=== PATIENT | female | born 1970 | race Caucasian/White ===

== ENCOUNTER 2020-12-04 17:41 | Emergency (ER) | payer BC ==
[~2020-12-04] VITALS: Ht 165.1 cm; Wt 108.9 kg
[~2020-12-04 17:41] MED LIST: MACROBID 100 M100 MG PO; PERCOCET 10-321 EACH PO; TORADOL 10 MG T10 MG PO
== END 2020-12-04 21:28 | disposition home or self-care (01) ==
LOC: ER1 17:41
DX: Z23 Encounter for immunization (principal); U07.1 COVID-19; E11.9 Type 2 diabetes mellitus without complications; I10 Essential (primary) hypertension; Z90.710 Acquired absence of both cervix and uterus
CPT/HCPCS: 99283; M0243

== ENCOUNTER → 2021-07-28 | Outpatient (CLI) | payer BC | LOC: US 08:08 | DX: K76.0 Fatty (change of) liver, not elsewhere classified (principal); R91.1 Solitary pulmonary nodule | CPT/HCPCS: 71250; 76700 ==